=== PATIENT | female | born 1975 | race Caucasian/White ===

== ENCOUNTER 2016-12-18 00:03 | Emergency (ER) | payer OTHER ==
[~2016-12-18] VITALS: Ht 162.6 cm; Wt 81.7 kg
[2016-12-18 01:14] LABS: CALCIUM 8.4 mg/dL (8.5-10.1); CREATININE 0.7 mg/dL (0.6-1.0); POTASSIUM 3.4 mmol/L (3.5-5.1)
[2016-12-18] MEDS ORDERED: AMOXICILLIN875 MG PO (03:40)
[2016-12-18] MEDS ORDERED: HYDROCODONE-ACE15 ML PO (03:40)
[2016-12-18] MEDS ORDERED: IBUPROFEN 600600 M1 PO (03:40)
[2016-12-18 03:55] VITALS: BP 123/70
== END 2016-12-18 03:55 | disposition home or self-care (01) ==
LOC: ER 00:03
PROVIDERS: Physician Assistant
DX: J03.90 Acute tonsillitis, unspecified (principal); R07.0 Pain in throat

== ENCOUNTER 2019-04-14 11:04 | Emergency (ER) | payer OTHER ==
[~2019-04-14] VITALS: Ht 162.6 cm; Wt 80.3 kg
[~2019-04-14 11:04] MED LIST: AMOXICILLIN875 MG PO; HYDROCODONE-ACE15 ML PO; IBUPROFEN 600600 M1 PO; NORCO 5-325 TA1 EACH PO
[2019-04-14] MEDS ORDERED: CORTISONE60 GM TOP (11:33)
[2019-04-14] MEDS ORDERED: PREDNISONE 20 M20 M1 PO (11:33)
[2019-04-14] MEDS ORDERED: BENADRYL25 MG PO (11:33)
[2019-04-14] MEDS ORDERED: ELIMITE60 GM TOP (11:35)
[2019-04-14 11:44] VITALS: BP 129/87
== END 2019-04-14 11:44 | disposition home or self-care (01) ==
LOC: ER 11:04
DX: R21 Rash and other nonspecific skin eruption (principal); L53.8 Other specified erythematous conditions; Z98.890 Other specified postprocedural states; Z98.51 Tubal ligation status